=== PATIENT | female | born 1965 | race Caucasian/White ===

== ENCOUNTER → 2019-02-16 | Outpatient (CLI) | payer OTHER, MEDICARE ==
[~2019-02-16] MED LIST: ALBU90OI INH; BUDE6HFA; CLON.5 PO; CYAN1000I IM; CYCL10 PO; ESOM20 PO; FAMO20 PO; LOSHYD PO; NAPR550 PO; OLME20-12. PO; OXYC10TA19 PO; OXYC40ER PO; Peri-Colace Ta1 EACH PO; RXHYDACE PO; RXNAPNA550 PO; RXPROM25 PO; SERT50 PO; SULTRIDS PO; ZOLP10 PO; Zofran8 MG PO
== END | disposition home or self-care (01) ==
LOC: LAB SHORT 09:50 → LAB 09:50
PROVIDERS: Nurse Practitioner
DX: Z01.419 Encounter for gynecological examination (general) (routine) without abnormal findings (principal)
CPT/HCPCS: G0145

== ENCOUNTER → 2019-04-14 | Outpatient (CLI) | payer OTHER, MEDICARE | END | disposition home or self-care (01) | LOC: LAB SHORT 14:25 → LAB EV 14:25 | DX: N39.0 Urinary tract infection, site not specified (principal) | CPT/HCPCS: 87077; 87086; 87186 ==

== ENCOUNTER → 2020-03-13 | Outpatient (CLI) | payer OTHER, MEDICARE | LOC: LAB SHORT 15:17 → LAB EV 15:17 | DX: N39.0 Urinary tract infection, site not specified (principal) | CPT/HCPCS: 87077; 87086; 87186 ==

== ENCOUNTER → 2020-08-01 | Outpatient (CLI) | payer OTHER, MEDICARE ==
[2020-08-03 15:00] LABS: CORONAVIRUS (COVID19) CSH-NRL Negative (Negative)
== END ==
LOC: LAB SHORT 15:55 → LAB 15:55
PROVIDERS: Family Medicine
DX: Z20.828 Contact with and (suspected) exposure to other viral communicable diseases (principal)
CPT/HCPCS: U0003

== ENCOUNTER → 2021-03-17 | Outpatient (CLI) | payer OTHER, MEDICARE ==
[2021-03-17 22:02] LABS: C DIFFICILE DNA NEGATIVE (Negative)
== END | disposition home or self-care (01) ==
LOC: LAB SHORT 09:40 → LAB 09:40
PROVIDERS: Nurse Practitioner
DX: R19.7 Diarrhea, unspecified (principal)
CPT/HCPCS: 87015; 87045; 87046; 87205; 87493; 87899

== ENCOUNTER 2023-04-21 18:44 | Emergency (ER) | payer BC, MEDICARE ==
[~2023-04-21] VITALS: Ht 162.6 cm; Wt 67.1 kg
[2023-04-21 19:46] LABS: BASOPHILS PERCENT AUTO 1 % (0-2); EOSINOPHILS ABSOLUTE AUTO 0.04 K/mm3 (0.00-0.68); EOSINOPHILS PERCENT AUTO 0 % (0-6); Hematocrit 40.2 % (33.0-51.0); IMMATURE GRAN ABSOLUTE AUTO 0.09 K/mm3 (0.00-0.10); IMMATURE GRAN PERCENT AUTO 1 % (0-1); LYMPHOCYTES ABSOLUTE AUTO 1.22 K/mm3 (0.84-5.20); LYMPHOCYTES PERCENT AUTO 13 % (21-46); MONOCYTES ABSOLUTE AUTO 0.65 K/mm3 (0.16-1.47); MONOCYTES PERCENT AUTO 7 % (4-13); Mean Corpuscular HGB 35.9 pg (26.0-34.0); Mean Corpuscular HGB Conc 34.8 g/dL (31.5-36.5); Mean Corpuscular Volume 103 fL (80-100); Mean Platelet Volume 8.2 fL (9.1-12.4); NEUTROPHILS ABSOLUTE AUTO 7.66 K/mm3 (1.96-9.15); NEUTROPHILS PERCENT AUTO 79 % (41-73); Platelet Count 353 K/mm3 (150-400); RDW Coefficient Variation 11.9 % (11.7-14.2); RDW Standard Deviation 44.8 fL (35.1-46.3); White Blood Cell Count 9.76 K/mm3 (4.00-11.30)
[2023-04-21 20:14] LABS: Albumin, Blood 4.1 g/dL (3.4-5.0); Albumin/Globulin Ratio 1.2 (0.8-1.8); Bilirubin, Total 0.9 mg/dL (0.1-1.0); Bun/Creatinine Ratio 28.5 (12.0-20.0); Calcium, Blood 9.4 mg/dL (8.5-10.1); Creatinine, Blood 0.7 mg/dL (0.40-1.00); Globulin, Blood 3.4 g/dL (2.2-4.0); Total Protein, Blood 7.5 g/dL (6.4-8.2)
[2023-04-21 21:41] LABS: Source, Urine Clean Catch
[2023-04-21 21:43] LABS: Bilirubin, Urine Neg (Neg); Blood, Urine 4+ (Neg); Glucose Qualitative, Urine Neg (Neg); Ketones, Urine 4+ (Neg); Leukocyte Esterase, Urine 2+ (Neg); Nitrite, Urine Neg (Neg); Protein, Urine 2+ (Neg); Specific Gravity, Urine 1.025 (1.003-1.022); Urobilinogen, Urine NORM (Normal)
[2023-04-21 21:56] LABS: Appearance, Urine Hazy (Clear); Color, Urine Yellow (P-Yellow)
[2023-04-21 21:57] LABS: Amorphous Light (0-Heavy); Bacteria Mod /hpf; Squamous Epithelial Cells Few /hpf (Few); White Blood Cells, Urine 25-50 /hpf (0-5)
[2023-04-21 23:00] VITALS: BP 128/81
[2023-04-21] MEDS ORDERED: CEPH500 PO (23:52)
== END 2023-04-22 00:23 | disposition home or self-care (01) ==
LOC: ER 18:44
PROVIDERS: Physician Assistant
DX: N39.0 Urinary tract infection, site not specified (principal); Z88.8 Allergy status to other drugs, medicaments and biological substances; Z79.899 Other long term (current) drug therapy; Z87.891 Personal history of nicotine dependence
CPT/HCPCS: 74177; 80053; 81001; 83690; 85025; 87086; 96361; 96365-59; 96375; 96376; 99284-25; A9270; J0696; J1170; J1885; J2405; J7030; Q9967

== ENCOUNTER → 2023-07-15 | Outpatient (CLI) | payer BC, MEDICARE ==
[~2023-07-15] MED LIST changes: +CEPH500 PO
== END ==
LOC: LAB SHORT 16:45 → LAB 16:45
DX: N39.0 Urinary tract infection, site not specified (principal)
CPT/HCPCS: 87077; 87086; 87186

== ENCOUNTER → 2023-09-12 | Outpatient (CLI) | payer BC, MEDICARE ==
[2023-09-13 11:08] LABS: Candida species (DNA Probe) Negative (NEGATIVE); G. vaginalis (DNA Probe) Negative (NEGATIVE); T. vaginalis (DNA Probe) Negative (NEGATIVE)
== END | disposition home or self-care (01) ==
LOC: LAB SHORT 17:24 → LAB 17:24
PROVIDERS: Family Medicine
DX: Z01.419 Encounter for gynecological examination (general) (routine) without abnormal findings (principal)
CPT/HCPCS: 87480; 87510; 87660

== ENCOUNTER → 2023-10-31 | Outpatient (CLI) | payer BC, MEDICARE ==
[2023-11-06 08:15] LABS: ETHYL GLUCURONIDE, URN, QUANT >10000 ng/mL; ETHYL SULFATE, URN, QUANT >10000 ng/mL
== END ==
LOC: LAB SHORT 11:04 → LAB 11:04
PROVIDERS: Family Medicine
DX: M48.02 Spinal stenosis, cervical region (principal); F10.20 Alcohol dependence, uncomplicated
CPT/HCPCS: G0480

== ENCOUNTER → 2024-03-12 | Outpatient (CLI) | payer BC, MEDICARE ==
[2024-03-12 11:25] LABS: Hematocrit 21.7 % (33.0-51.0); Hemoglobin 7.4 g/dL (11.5-16.0); Mean Corpuscular HGB 34.6 pg (26.0-34.0); Mean Corpuscular HGB Conc 34.1 g/dL (31.5-36.5); Mean Corpuscular Volume 101 fL (80-100); Mean Platelet Volume 8.4 fL (9.1-12.4); Platelet Count 491 K/mm3 (150-400); RDW Coefficient Variation 15.4 % (11.7-14.2); RDW Standard Deviation 57.1 fL (35.1-46.3); Red Blood Cell Count 2.14 M/mm3 (3.80-5.20); White Blood Cell Count 6.94 K/mm3 (4.00-11.30)
[2024-03-12 11:42] LABS: Albumin, Blood 2.1 g/dL (3.4-5.0); Albumin/Globulin Ratio 0.6 (0.8-1.8); Bilirubin, Total 0.5 mg/dL (0.1-1.0); Bun/Creatinine Ratio 4.7 (12.0-20.0); Calcium, Blood 8.3 mg/dL (8.5-10.1); Creatinine, Blood 0.43 mg/dL (0.40-1.00); Globulin, Blood 3.4 g/dL (2.2-4.0); Potassium, Blood 2.7 mmol/L (3.5-5.5); Total Protein, Blood 5.5 g/dL (6.4-8.2)
== END | disposition home or self-care (01) ==
LOC: LAB SHORT 10:56 → LAB 10:56
PROVIDERS: Internal Medicine Infectious Disease
DX: E87.1 Hypo-osmolality and hyponatremia (principal); T81.30XA Disruption of wound, unspecified, initial encounter
CPT/HCPCS: 85027; 86140

== ENCOUNTER → 2024-03-13 | Outpatient (CLI) | payer BC, MEDICARE ==
[2024-03-13 11:46] LABS: Vancomycin, Trough 13.2 ug/mL (5.0-10.0)
== END | disposition home or self-care (01) ==
LOC: LAB SHORT 10:30
PROVIDERS: Internal Medicine Infectious Disease
DX: T81.30XA Disruption of wound, unspecified, initial encounter (principal); E87.1 Hypo-osmolality and hyponatremia; Z79.899 Other long term (current) drug therapy
CPT/HCPCS: 80202; 86140

== ENCOUNTER → 2024-03-17 | Outpatient (CLI) | payer BC, MEDICARE ==
[2024-03-17 11:30] LABS: Hematocrit 23.7 % (33.0-51.0); Hemoglobin 8.1 g/dL (11.5-16.0); Mean Corpuscular HGB 33.6 pg (26.0-34.0); Mean Corpuscular HGB Conc 34.2 g/dL (31.5-36.5); Mean Corpuscular Volume 98 fL (80-100); Mean Platelet Volume 8.5 fL (9.1-12.4); Platelet Count 545 K/mm3 (150-400); RDW Coefficient Variation 15.2 % (11.7-14.2); RDW Standard Deviation 54.7 fL (35.1-46.3); Red Blood Cell Count 2.41 M/mm3 (3.80-5.20); White Blood Cell Count 6.44 K/mm3 (4.00-11.30)
[2024-03-17 11:51] LABS: Albumin, Blood 2.3 g/dL (3.4-5.0); Albumin/Globulin Ratio 0.6 (0.8-1.8); Bilirubin, Total 0.4 mg/dL (0.1-1.0); Bun/Creatinine Ratio 6.1 (12.0-20.0); Calcium, Blood 8.5 mg/dL (8.5-10.1); Creatinine, Blood 0.49 mg/dL (0.40-1.00); Globulin, Blood 3.8 g/dL (2.2-4.0); Potassium, Blood 2.5 mmol/L (3.5-5.5); Total Protein, Blood 6.1 g/dL (6.4-8.2)
[2024-03-17 15:17] LABS: Vancomycin, Trough 19.1 ug/mL (5.0-10.0)
== END | disposition home or self-care (01) ==
LOC: LAB 11:02 → LAB SHORT 11:02
PROVIDERS: Internal Medicine Infectious Disease
DX: T81.30XA Disruption of wound, unspecified, initial encounter (principal); E87.1 Hypo-osmolality and hyponatremia
CPT/HCPCS: 80053; 80202; 85027; 86140